=== PATIENT | male | born 1960 | race Caucasian/White ===

== ENCOUNTER 2024-08-25 09:05 | Outpatient (AMB) | payer MEDICAID, SELFPAY ==
[2024-08-25 09:15] VITALS: BP 144/88; PULSE 59; RESP 18; TEMP 36.6; O2SAT 97; BMI 31.4
--- NOTE | 2024-08-25 09:15 | ORTHONT_ITS ---
Vital signs 08/25/24 09:15 Height 1.75 m Height Method Stated Weight 96.19 kg Weight Measurement Method Standing Scale BMI 31.4 BP 144/88 H Blood Pressure Source Automatic Cuff Blood Pressure Location Right Upper Arm Position Sitting Respiration 18 Pulse 59 L Pulse Source Monitor Temp 97.8 F Temp Source Temporal Artery Scan Pulse Oximetry (%) 97 Oxygen Delivery Method Room Air Med/Allergies Allergies & Medications Allergies No Known Allergies Allergy (Verified 08/25/24 09:16) Medication Reconciliation albuterol sulfate 90 mcg/actuation aerosol inhaler 2 puff inhalation Q6H PRN [History Confirmed 08/25/24] allopurinol 300 mg tablet 300 mg PO QDAY 02/08/24 [History Confirmed 08/25/24] colchicine 0.6 mg capsule 0.6 mg PO QDAY 02/08/24 [History Confirmed 08/25/24] fluticasone 100 mcg-salmeterol 50 mcg/dose blistr powdr for inhalation (Advair Diskus) 1 inh inhalation BID 02/08/24 [History Confirmed 08/25/24] levothyroxine 150 mcg capsule 150 mcg PO QDAY 02/08/24 [History Confirmed 08/25/24] losartan 100 mg tablet 100 mg PO QDAY 02/08/24 [History Confirmed 08/25/24] pravastatin 80 mg tablet 80 mg PO QDAY 02/08/24 [History Confirmed 08/25/24] meloxicam 7.5 mg tablet 7.5 mg PO QDAY #45 tabs 02/22/24 [Rx Confirmed 08/25/24] diclofenac sodium 1 % topical gel (Arthritis Pain (diclofenac)) 4 g topical QID #100 grams 08/25/24 [Rx] meloxicam 15 mg tablet 15 mg PO QDAY #60 tabs 08/25/24 [Rx] Exam Exam Patient is in no acute distress and is cooperative with the examination today. Breathing is nonlabored. Patient has a normal mood and affect. Bilateral extremities were evaluated and demonstrates sensation intact to light touch. Palpable pedal pulses are present. No significant edema is present. Bilateral hips were examined. The patient has no pain with log roll of the hips. Internal rotation to 30 degrees and external rotation to 30 degrees is painless. Negative FADIR. Right knee was examined today. The right knee is in reasonable alignment. Range of motion from 0-120 degrees. Knee is stable to varus and valgus as well as AP translation with <5mm. Patient has a negative McMurrays. There is no pain with patellofemoral compression and no crepitus noted. The knee is nontender to palpation. Left knee was examined today. The left knee is in [varus] alignment. Range of motion from [0-115] degrees. Knee is stable to varus and valgus as well as AP translation with <5mm. Patient has a [negative] McMurrays. There is [no] pain with patellofemoral compression and [no] crepitus noted. The knee is [tender] to palpation [medially]. X-rays and MRI reviewed by me today. X-rays demonstrate mild joint space narrowing of the left knee. There are minimal osteophytes. He also has an MRI that demonstrates a degenerative meniscal tear with a horizontal pattern Assessment and Plan Problem List (1) Degenerative arthritis of knee, bilateral: Status: Acute Plan: 63-year-old male with severe left knee pain. He has tried physical therapy and anti-inflammatories. His injection has worn off and he would like another 1 today. He was not that happy with the last injection. He would like a refill of meloxicam Recommend knee cortisone injection as patient would like to proceed with conservative treatment at this time. The risks and benefits of the procedure were reviewed with the patient and patient gave verbal consent to continue with the procedure. Procedure: performed by Dr. Serivn Using sterile technique the left knee was thoroughly prepped with alcohol, and approximately 1 cc of Kenalog 40 mg/mL and 4 cc of 1% lidocaine was injected without resistance into the medial tibial femoral joint space. The patient tolerated the procedure. Office Procedures GNS Level of Care Nursing/Assessment Patient Status: Established Patient Nursing Assessment/Reassesment: Medication Reconciliation, Update PMH in EMR and Vital Signs Coordination of Care: Complex Care and Chronic Disease 1-5, Education Complex Pt/Fam, Consent,records obtained, informed consent, Results/Orders obtained and Staff clarify orders Established Patient Charge Established Patient Point Assignment: 95 Established Patient Point Charge: EP Level 3 (80-115) Surgical Proc/IM SQ injection Major Surgical Procedure: Yes (KNEE INJECTION ) Medication Given Medication Given Medication Given: Yes Documented Dose Given: 4 Route: Infiitration Medication Given Medication Given Medication Given: Yes Documented Dose Given: 1 Route: Infiitration Office Meds Xylocaine 10 mg/mL (1 %) injection solution Performing Provider: Ankur Servin MD Performing Location: [facility] Administered by: Ankur Servin MD on 08/25/24 11:20 Dose Route Admin Location Dispensed Lot Number Expiration Date [employer] 20 mL Infiltration 20 mL [id number] 03/22/27 12918-605-33 [facility] triamcinolone acetonide 40 mg/mL suspension for injection Performing Provider: Ankur Servin MD Performing Location: [facility] Administered by: Ankur Servin MD on 08/25/24 11:20 Dose Route Admin Location Dispensed Lot Number Expiration Date [facility] Plant Electrical Engineer 40 mg intra-articular KNEE PAIN 1 mL [id number] 12/14/25 6973-4884-05 TEVA PARENTERAL [place] Intake Visit Data Collection New Patient or Established: Established Patient (seen at [facility] within 3 years) Reason for Visit:: F/U 3 MONTH KNEE PAIN Seen by Clinical Staff ONLY (RN/MA): No Verbal consent obtained for Telemed visit?: No Corrections Specialist Required: No PCP or OBGYN visit in last 3 months: Yes Hx Now: No Do You Feel Safe at Home: Yes Authorities Contacted: N/A Questionairres Past Medical History Past Medical History Have you ever been diagnosed with any of the following: Respiratory Problems Cough: No Wheezing: No Smoking: No Smoking Cessation Counseling: No Smoking Exposure: No Subjective Visit Visit for: follow up visit and knee Immunization / Flu Flu Vaccine in the Last 12 Months: No Flu Vaccine Exclusion Criteria: No Exclusion Criteria History of Present Illness Chief complaint: F/U 3 MONTH KNEE PAIN Pain Pain level (0-10): 6 Pain duration: CONSTANT Pain location: inside (medial), outside (lateral), anterior and posterior Pain quality: sharp, dull and aching Pain timing: increases with activity Ambulatory data Ambulatory device: none Treatments Improvement with previous injections: No Improvement with PT: No Improvement with NSAIDS: no Review of Systems Review of Systems: All systems negative unless otherwise noted in HPI.
== END 2024-08-25 09:38 | disposition home or self-care (01) ==
LOC: HODSRG 09:05
PROVIDERS: PCP Family Medicine; Referring Provider Family Medicine; Supervising Provider Orthopaedic Surgery Adult Reconstructive Orthopaedic Surgery; Visit Provider Orthopaedic Surgery Adult Reconstructive Orthopaedic Surgery
DX: M17.0 Bilateral primary osteoarthritis of knee (principal); M25.562 Pain in left knee
CPT/HCPCS: 20610; 99213; J3301; J3490; G0463

== ENCOUNTER 2024-11-21 09:02 | Outpatient (AMB) | payer MEDICAID, SELFPAY ==
[2024-11-21 09:15] VITALS: BP 153/91; PULSE 57; RESP 18; TEMP 36.9; O2SAT 99; BMI 31.7
--- NOTE | 2024-11-21 09:15 | PD.ORTHCLVIS ---
Vital signs 11/21/24 09:15 Height 1.75 m Height Method Stated Weight 97.296 kg Weight Measurement Method Standing Scale BMI 31.7 BP 153/91 H Blood Pressure Source Automatic Cuff Blood Pressure Location Right Upper Arm Position Sitting Respiration 18 Pulse 57 L Pulse Source Monitor Temp 98.5 F Temp Source Temporal Artery Scan Pulse Oximetry (%) 99 Oxygen Delivery Method Room Air Med/Allergies Allergies & Medications Allergies No Known Allergies Allergy (Verified 11/21/24 09:16) Medication Reconciliation albuterol sulfate 90 mcg/actuation aerosol inhaler 2 puff inhalation Q6H PRN 02/08/24 [History Confirmed 11/21/24] allopurinol 300 mg tablet 300 mg PO QDAY 02/08/24 [History Confirmed 11/21/24] colchicine 0.6 mg capsule 0.6 mg PO QDAY 02/08/24 [History Confirmed 11/21/24] fluticasone 100 mcg-salmeterol 50 mcg/dose blistr powdr for inhalation (Advair Diskus) 1 inh inhalation BID 02/08/24 [History Confirmed 11/21/24] levothyroxine 150 mcg capsule 150 mcg PO QDAY 02/08/24 [History Confirmed 11/21/24] losartan 100 mg tablet 100 mg PO QDAY 02/08/24 [History Confirmed 11/21/24] pravastatin 80 mg tablet 80 mg PO QDAY 02/08/24 [History Confirmed 11/21/24] meloxicam 7.5 mg tablet 7.5 mg PO QDAY #45 tabs 02/22/24 [Rx Confirmed 11/21/24] diclofenac sodium 1 % topical gel (Arthritis Pain (diclofenac)) 4 g topical QID #100 grams 08/25/24 [Rx Confirmed 11/21/24] meloxicam 15 mg tablet 15 mg PO QDAY #60 tabs 08/25/24 [Rx Confirmed 11/21/24] Exam Exam Patient is in no acute distress and is cooperative with the examination today. Breathing is nonlabored. Patient has a normal mood and affect. Bilateral extremities were evaluated and demonstrates sensation intact to light touch. Palpable pedal pulses are present. No significant edema is present. Bilateral hips were examined. The patient has no pain with log roll of the hips. Internal rotation to 30 degrees and external rotation to 30 degrees is painless. Negative FADIR. Right knee was examined today. The right knee is in reasonable alignment. Range of motion from 0-120 degrees. Knee is stable to varus and valgus as well as AP translation with <5mm. Patient has a negative McMurrays. There is no pain with patellofemoral compression and no crepitus noted. The knee is nontender to palpation. Left knee was examined today. The left knee is in [varus] alignment. Range of motion from [0-115] degrees. Knee is stable to varus and valgus as well as AP translation with <5mm. Patient has a [negative] McMurrays. There is [no] pain with patellofemoral compression and [no] crepitus noted. The knee is [tender] to palpation [medially]. X-rays and MRI reviewed by me today. X-rays demonstrate mild joint space narrowing of the left knee. There are minimal osteophytes. He also has an MRI that demonstrates a degenerative meniscal tear with a horizontal pattern Assessment and Plan Problem List (1) Degenerative arthritis of knee, bilateral: Status: Acute Plan: 63-year-old male with severe left knee pain. He has tried physical therapy and anti-inflammatories. His injection has worn off and he would like another 1 today. He was not that happy with the last injection. He would like a refill of meloxicam Recommend knee cortisone injection as patient would like to proceed with conservative treatment at this time. The risks and benefits of the procedure were reviewed with the patient and patient gave verbal consent to continue with the procedure. Procedure: performed by Dr. Servin Using sterile technique the left knee was thoroughly prepped with alcohol, and approximately 1 cc of Kenalog 40 mg/mL and 4 cc of 1% lidocaine was injected without resistance into the medial tibial femoral joint space. The patient tolerated the procedure. Office Procedures GNS Level of Care Nursing/Assessment Patient Status: Established Patient Nursing Assessment/Reassesment: Medication Reconciliation, Update PMH in EMR and Vital Signs Coordination of Care: Complex Care and Chronic Disease 1-5, Education Complex Pt/Fam, Consent,records obtained, informed consent, Results/Orders obtained and Staff clarify orders Established Patient Charge Established Patient Point Assignment: 95 Established Patient Point Charge: EP Level 3 (80-115) Surgical Proc/IM SQ injection Major Surgical Procedure: Yes (KNEE INJECTION ) Medication Given Medication Given Medication Given: Yes Documented Dose Given: 4 Route: Infiitration Medication Given Medication Given Medication Given: Yes Documented Dose Given: 4 Route: Infiitration Medication Given Medication Given Medication Given: Yes Documented Dose Given: 1 Route: Infiitration Office Meds Xylocaine 10 mg/mL (1 %) injection solution Performing Provider: Ankur Servin MD Performing Location: [facility] Administered by: Ankur Servin MD on 11/21/24 10:13 Dose Route Admin Location Dispensed Lot Number Expiration Date [facility] Retail Leasing Agent 20 mL Infiltration 20 mL [id number] [facility] [employer] Xylocaine 10 mg/mL (1 %) injection solution Performing Provider: Ankur Servin MD Performing Location: [facility] Administered by: Ankur Servin MD on 11/21/24 10:13 Dose Route Admin Location Dispensed Lot Number Expiration Date [place] Retail Leasing Agent 20 mL Infiltration 20 mL triamcinolone acetonide 40 mg/mL suspension for injection Performing Provider: Ankur Servin MD Performing Location: [facility] Administered by: Ankur Servin MD on 11/21/24 10:13 Dose Route Admin Location Dispensed Lot Number Expiration Date [facility] Retail Leasing Agent 40 mg intra-articular KNEE 1 mL [id number] 03/16/26 5471-3756-61 TEVA PARENTERAL MA Intake Visit Data Collection New Patient or Established: Established Patient (seen at [facility] within 3 years) Reason for Visit:: 3 MONTH FOLLOW UP Seen by Clinical Staff ONLY (RN/MA): No Verbal consent obtained for Telemed visit?: No Endoscopy Technican Required: No PCP or OBGYN visit in last 3 months: Yes Hx Now: No Do You Feel Safe at Home: Yes Authorities Contacted: N/A Questionairres Past Medical History Past Medical History Have you ever been diagnosed with any of the following: Respiratory Problems Cough: No Wheezing: No Smoking: No Smoking Cessation Counseling: No Smoking Exposure: No Subjective Visit Visit for: follow up visit, knee and injections Immunization / Flu Flu Vaccine in the Last 12 Months: Yes Flu Vaccine Exclusion Criteria: Already Received History of Present Illness Chief complaint: 3 FOLLOW UP KNEE INJECTION Wisam is a 64-year-old male who we have been treating with a degenerative discal tear. He reports the last 3 months of actually pretty great. He would like new injections today but reports that they are still working very well. Pain Pain level (0-10): 5 Pain duration: ALL DAY Pain location: inside (medial), outside (lateral), anterior and posterior Pain quality: sharp, dull and aching Pain timing: increases with activity Associated signs & symptoms: weakness Ambulatory data Ambulatory device: none Treatments Improvement with previous injections: No Improvement with PT: No Improvement with NSAIDS: no Review of Systems Review of Systems: All systems negative unless otherwise noted in HPI.
== END 2024-11-21 09:32 | disposition home or self-care (01) ==
PROVIDERS: PCP Family Medicine; Referring Provider Family Medicine; Supervising Provider Orthopaedic Surgery Adult Reconstructive Orthopaedic Surgery; Visit Provider Orthopaedic Surgery Adult Reconstructive Orthopaedic Surgery
DX: M17.0 Bilateral primary osteoarthritis of knee (principal); M25.562 Pain in left knee
CPT/HCPCS: 20610; 99213; J3301; J3490; G0463

== ENCOUNTER 2025-02-20 10:29 | Outpatient (AMB) | payer MEDICAID, SELFPAY ==
--- NOTE | 2025-02-20 10:48 | PD.ORTHCLVIS ---
Vital signs 02/20/25 10:49 Height 1.75 m Height Method Stated Weight 91.314 kg Weight Measurement Method Standing Scale BMI 29.8 BP 164/86 H Blood Pressure Source Automatic Cuff Blood Pressure Location Right Upper Arm Position Sitting Respiration 18 Pulse 60 Pulse Source Monitor Temp 97.6 F Temp Source Temporal Artery Scan Pulse Oximetry (%) 98 Oxygen Delivery Method Room Air Med/Allergies Allergies & Medications Allergies No Known Allergies Allergy (Verified 02/20/25 10:50) Medication Reconciliation albuterol sulfate 90 mcg/actuation aerosol inhaler 2 puff inhalation Q6H PRN 02/08/24 [History Confirmed 02/20/25] allopurinol 300 mg tablet 300 mg PO QDAY 02/08/24 [History Confirmed 02/20/25] colchicine 0.6 mg capsule 0.6 mg PO QDAY 02/08/24 [History Confirmed 02/20/25] fluticasone 100 mcg-salmeterol 50 mcg/dose blistr powdr for inhalation (Advair Diskus) 1 inh inhalation BID 02/08/24 [History Confirmed 02/20/25] levothyroxine 150 mcg capsule 150 mcg PO QDAY 02/08/24 [History Confirmed 02/20/25] losartan 100 mg tablet 100 mg PO QDAY 02/08/24 [History Confirmed 02/20/25] pravastatin 80 mg tablet 80 mg PO QDAY 02/08/24 [History Confirmed 02/20/25] meloxicam 7.5 mg tablet 7.5 mg PO QDAY #45 tabs 02/22/24 [Rx Confirmed 02/20/25] diclofenac sodium 1 % topical gel (Arthritis Pain (diclofenac)) 4 g topical QID #100 grams 08/25/24 [Rx Confirmed 02/20/25] meloxicam 15 mg tablet 15 mg PO QDAY #60 tabs 08/25/24 [Rx Confirmed 02/20/25] Exam Exam Patient is in no acute distress and is cooperative with the examination today. Breathing is nonlabored. Patient has a normal mood and affect. Bilateral extremities were evaluated and demonstrates sensation intact to light touch. Palpable pedal pulses are present. No significant edema is present. Bilateral hips were examined. The patient has no pain with log roll of the hips. Internal rotation to 30 degrees and external rotation to 30 degrees is painless. Negative FADIR. Right knee was examined today. The right knee is in reasonable alignment. Range of motion from 0-120 degrees. Knee is stable to varus and valgus as well as AP translation with <5mm. Patient has a negative McMurrays. There is no pain with patellofemoral compression and no crepitus noted. The knee is nontender to palpation. Left knee was examined today. The left knee is in [varus] alignment. Range of motion from [0-115] degrees. Knee is stable to varus and valgus as well as AP translation with <5mm. Patient has a [negative] McMurrays. There is [no] pain with patellofemoral compression and [no] crepitus noted. The knee is [tender] to palpation [medially]. X-rays and MRI reviewed by me today. X-rays demonstrate mild joint space narrowing of the left knee. There are minimal osteophytes. He also has an MRI that demonstrates a degenerative meniscal tear with a horizontal pattern Assessment and Plan Problem List (1) Degenerative arthritis of knee, bilateral: Status: Acute Plan: 63-year-old male with severe left knee pain. He has tried physical therapy and anti-inflammatories. His injection has worn off and he would like another 1 today. He was not that happy with the last injection. Given that he has failed conservative treatment including physical therapy, multiple injections, anti-inflammatories, and that he has significant mechanical symptoms, we considered arthroscopic meniscectomy as a reasonable option. We discussed the risk of surgery including infection, progression of arthritis, retear, persistent mechanical symptoms, damage to nerves and vessels. He would like to proceed with surgery at this time. He has failed conservative treatment. Office Procedures GNS Level of Care Nursing/Assessment Patient Status: Established Patient Nursing Assessment/Reassesment: Medication Reconciliation, Update PMH in EMR and Vital Signs Coordination of Care: Complex Care and Chronic Disease 1-5, Education Complex Pt/Fam, Consent,records obtained, informed consent, Lab and Imaging orders, Results/Orders obtained and Staff clarify orders Established Patient Charge Established Patient Point Assignment: 110 Established Patient Point Charge: EP Level 3 (80-115) MA Intake Visit Data Collection New Patient or Established: Established Patient (seen at [facility] within 3 years) Reason for Visit:: REQ LEFT KNEE SURGERY DUE TO PAIN Seen by Clinical Staff ONLY (RN/MA): No Verbal consent obtained for Telemed visit?: No Aviation Neuropsychologist Required: No PCP or OBGYN visit in last 3 months: Yes Hx Now: No Do You Feel Safe at Home: Yes Authorities Contacted: N/A Questionairres Past Medical History Past Medical History Have you ever been diagnosed with any of the following: Respiratory Problems Cough: No Wheezing: No Smoking: No Smoking Cessation Counseling: No Smoking Exposure: No Subjective Visit Visit for: follow up visit, knee and injections Immunization / Flu Flu Vaccine in the Last 12 Months: No Flu Vaccine Exclusion Criteria: No Exclusion Criteria and Already Received History of Present Illness Chief complaint: 3 FOLLOW UP KNEE INJECTION Wisam is a 64-year-old male who we have been treating with a degenerative meniscal tear. The pain has been ongoing for a year. He is very active and enjoys photography and wants to go back to hiking. He reports he does not trust his left knee as it clicks and walks. The pain is primarily on the medial aspect of his knee. He has tried formal physical therapy and multiple injections and anti-inflammatories at this point with minimal relief. We just considered a arthroscopic meniscectomy as a real option as he has a lot of mechanical symptoms Personal History Red flag PMH: BMI BMI Counceling provided: Yes Pain Pain level (0-10): 6 Pain duration: WITH MOVEMENT Pain location: inside (medial), outside (lateral), anterior and posterior Pain quality: sharp, dull and aching Pain timing: increases with activity Associated signs & symptoms: numbness and weakness Ambulatory data Ambulatory device: none Treatments Improvement with previous injections: No Improvement with PT: No Improvement with NSAIDS: no Review of Systems Review of Systems: All systems negative unless otherwise noted in HPI.
[2025-02-20 10:49] VITALS: BP 164/86; PULSE 60; RESP 18; TEMP 36.4; O2SAT 98; BMI 29.8
== END 2025-02-20 10:55 | disposition home or self-care (01) ==
LOC: HODSRG 10:29
PROVIDERS: PCP Family Medicine; Referring Provider Family Medicine; Supervising Provider Orthopaedic Surgery Adult Reconstructive Orthopaedic Surgery; Visit Provider Orthopaedic Surgery Adult Reconstructive Orthopaedic Surgery
DX: M17.0 Bilateral primary osteoarthritis of knee (principal); M25.562 Pain in left knee
CPT/HCPCS: 99213; G0463

== ENCOUNTER 2025-03-19 06:35 | Day surgery (SDC) | payer MEDICAID, SELFPAY ==
--- NOTE | 2025-03-15 06:00 | EKG_ITS ---
[facility] Test Date: 2025-03-15 Pat Name: JONE ABDULLAHI Department: Room: - Gender: Male [employer] Pumper: ALBER : 1960 Requested By: Tee Mansfield Order Number: [id number] Reading MD: Tee Mansfield Measurements Intervals [place] Rate: 53 P: 39 AK: 179 QRS: -58 QRSD: 138 T: -9 QT: 441 QTc: 417 Interpretive Statements SINUS BRADYCARDIA RIGHT BUNDLE BRANCH BLOCK [120+ ms QRS DURATION, UPRIGHT V1, 40+ ms S IN I/aVL/V4/V5/V6] LEFT ANTERIOR FASCICULAR BLOCK [QRS AXIS <= -45, QR IN I, RS IN II] No previous ECG available for comparison /[id number]/[email or web address]/[id number]
[2025-03-15 10:08] VITALS: BMI 30.8
[2025-03-15 11:36] LABS: Basophils # (Auto) 0.0 Thou/mm3 (0.0-0.2); Basophils % (Auto) 1 % (0-2.5); Eosinophils # (Auto) 0.6 Thou/mm3 (0.0-0.5); Eosinophils % (Auto) 12 % (0-10); Hematocrit 42.5 % (41.0-53.0); Hemoglobin 14.2 g/dL (13.5-16.0); Immature Granulocytes Auto 0.01 Thou/mm3 (0.00-0.00); Lymphocytes # (Auto) 1.7 Thou/mm3 (1.0-4.8); Lymphocytes % (Auto) 33 % (10-50); Mean Corpuscular HGB Conc 33.4 g/dl (31.0-37.0); Mean Corpuscular Hemoglobin 32.0 pg (25.0-35.0); Mean Corpuscular Volume 96 fL (80-100); Monocytes # (Auto) 0.8 Thou/mm3 (0.0-0.8); Monocytes % (Auto) 16 % (0-12); Neutrophils # (Auto) 1.9 Thou/mm3 (1.8-7.7); Neutrophils % (Auto) 38 % (37-80); Nucleated Red Blood Cell # 0.00 Thou/mm3 (0.00-0.00); Nucleated Red Blood Cell % 0 /100 WBC (0); Platelet Count 312 Thou/mm3 (140-440); RDW Standard Deviation 45.3 fL (35.1-43.9); Red Blood Count 4.44 Miln/mm3 (4.50-5.90); White Blood Count 4.9 Thou/mm3 (3.8-10.6)
[2025-03-15 11:41] LABS: Alanine Aminotransferase 38 U/L (10-49); Albumin, Serum 4.6 gm/dL (3.4-4.8); Albumin/Globulin Ratio 1.8 (1.2-2.2); Alkaline Phosphatase 65 U/L (46-116); Anion Gap 7 (7-16); Aspartate Amino Transferase 25 U/L (0-34); BUN/Creatinine Ratio 11 Ratio (12-20); Bilirubin,Total 0.5 mg/dL (0.3-1.2); Blood Urea Nitrogen 13 mg/dL (9-23); Calcium 9.6 mg/dL (8.3-10.6); Calcium (Corrected) 9.6 mg/dL (8.5-10.1); Carbon Dioxide 28.4 mMol/L (20.0-31.0); Chloride 105 mMol/L (98-107); Creatinine (Component) 1.2 mg/dL (0.6-1.3); Estimated Creatinine Clearance 68.5 mL/min (>60); Globulin 2.5 gm/dL (2.3-3.5); Glucose 102 mg/dL (74-106); Osmolality,Calculated 279 (275-295); Potassium 4.1 mMol/L (3.4-5.1); Sodium 140 mMol/L (136-145); Total Protein 7.1 gm/dL (5.7-8.2); eGFR > 60 See Note
[2025-03-15 11:45] LABS: INR 1.0 (0.9-1.3); Partial Thromboplastin Time 28.2 Seconds (22.0-36.0); Prothrombin Time 10.5 Seconds (9.0-12.2)
--- NOTE | 2025-03-16 13:37 | SUR.PREOP ---
Pt notified to come in at 0700 for surgery.
[2025-03-19] VITALS (9 sets, daily range): BP systolic 110–152; BP diastolic 67–93; PULSE 52–71; RESP 14–20; TEMP 36.2–36.6; O2SAT 96–100; BMI 30.7
--- NOTE | 2025-03-19 07:23 | SUR.PREOP ---
Patient expressed gratitude for visit before his procedure.
--- NOTE | 2025-03-19 10:27 | SUR.PHASEI ---
1027 Patient arrived to recovery resting comfortably in on oxygen 6L via oxy mask with an oral airway in place, breathing unlabored, vital signs stable, dressing intact to left knee; prineo, telfa, abd, webril, bret wraps, no bleeding noted, report received from Dr. Fonseca and Victoria JEFFERY
--- NOTE | 2025-03-19 10:27 | PD.SUROPNT ---
Date of Procedure 03/19/25 Pre Op Diagnosis left knee meniscus tear medial and lateral Post Op Diagnosis left knee meniscus tear medial and lateral Procedure Left knee arthroscopic meniscectomy Findings Anterior lateral meniscus tear as well as a horizontal tear of the body of the medial meniscus Procedure Description Indications: Patient is a 64-year-old male with left knee pain and symptoms of mechanical locking and clicking. He also has significant left knee pain. He has failed conservative treatment and we thus discussed arthroscopic meniscectomy is a reasonable option. MRI confirmed a meniscus tear as well as clinical exam. He understands the risk of surgery including arthritis, progression of arthritis, possible knee replacement in the future, damage to nerves and vessels Procedure detail: The patient was prepped and draped in usual sterile fashion. The tourniquet was inflated after surgical timeout verified that the left side was the correct side. We first used a L4 portal followed by a inferolateral arthroscopic portal. A diagnostic knee scope was performed. He was found to have grade 3 changes on the medial femoral condyle despite x-rays being relatively normal. He was found to have significant fraying of the lateral medial meniscus. On the medial meniscus of the body there was a displaced horizontal flap component. This was debrided using a biter followed by a shaver. We then into went to a [id number] position and there was noted to be fraying of the anterior lateral meniscus. We used a shaver to debride this to a clean margin. Pictures were taken. We subsequently injected local anesthetic into the knee. The patient was closed with 3-0 Monocryl and a sterile dressing was applied. Postoperative plan Weightbearing as tolerated Pathology / specimen None Pathology comment: none Estimated Blood Loss 20 Disposition same day Surgeon Ankur Servin MD Surgical Staff Operation Date: 03/19/25 10:00 Case Staff Anesthesiologist: Wilton Fonseca RN First Assistant: Cahterine Hoffmann
[2025-03-19] MEDS: HYDROmorphone INJ 2 MG/ML VIAL 0.4 MG IVP (11:07)
--- NOTE | 2025-03-19 11:10 | SUR.PHASEII ---
1110 patient son notified patient out of surgery and ready to have family, son shared he would leave his house that he lives in [place]
--- NOTE | 2025-03-19 11:55 | SUR.PHASEII ---
1155 Patient disconnected from vital signs monitor and dressed in his clothing awaiting his ride
--- NOTE | 2025-03-19 12:20 | SUR.PHASEII ---
1220 Patient meets discharge criteria from recovery, awake and alert, breathing unlabored, vital signs stable, denies pain, dressing intact; no bleeding noted, ate two jello and drinking 7up; denies nausea, discharge instructions given to patient and patients son, son signed discharge instructions. Patient given all his belongings prior to discharge, transported via wheelchair and left in a private vehicle.
== END 2025-03-19 12:20 | disposition home or self-care (01) ==
PROVIDERS: Anesthesiology; PCP Family Medicine; Referring Provider Orthopaedic Surgery Adult Reconstructive Orthopaedic Surgery; Visit Provider Orthopaedic Surgery Adult Reconstructive Orthopaedic Surgery
PROC: (CPT 29870; principal; 2025-03-19 09:45)
DX: S83.282A Other tear of lateral meniscus, current injury, left knee, initial encounter (principal); X58.XXXA Exposure to other specified factors, initial encounter; Z01.810 Encounter for preprocedural cardiovascular examination; I44.4 Left anterior fascicular block; I45.10 Unspecified right bundle-branch block; R00.1 Bradycardia, unspecified; M17.12 Unilateral primary osteoarthritis, left knee
CPT/HCPCS: 29881; 36415; 80053; 85025; 85610; 85730; 93005; A4217; A4649; J0131; J0690; J1171; J2250; J2704; J3010; J3490; J7999; J0665

== ENCOUNTER 2025-04-03 13:00 | Outpatient (AMB) | payer MEDICAID, SELFPAY ==
--- NOTE | 2025-04-03 13:13 | ORTHONT_ITS ---
Vital signs 04/03/25 13:23 Height 1.73 m Height Method Stated Weight 92.76 kg Weight Measurement Method Standing Scale BMI 30.9 BP 144/78 H Blood Pressure Source Automatic Cuff Blood Pressure Location Left Upper Arm Position Sitting Respiration 19 Pulse 59 L Pulse Source Monitor Temp 97.6 F Temp Source Temporal Artery Scan Pulse Oximetry (%) 98 Oxygen Delivery Method Room Air Med/Allergies Allergies & Medications Allergies [id number] Reductase Inhibitor Allergy (Verified 04/03/25 13:24) Cramping of the Muscles Medication Reconciliation albuterol sulfate 90 mcg/actuation aerosol inhaler 2 puff inhalation Q6H PRN shortness of breath or wheezing 02/08/24 [History Confirmed 04/03/25] allopurinol 300 mg tablet 300 mg PO QDAY 02/08/24 [History Confirmed 04/03/25] colchicine 0.6 mg capsule 0.6 mg PO QDAY 02/08/24 [History Confirmed 04/03/25] fluticasone 100 mcg-salmeterol 50 mcg/dose blistr powdr for inhalation (Advair Diskus) 1 inh inhalation BID 02/08/24 [History Confirmed 04/03/25] levothyroxine 150 mcg capsule 150 mcg PO QDAY 02/08/24 [History Confirmed 04/03/25] losartan 100 mg tablet 100 mg PO QDAY 02/08/24 [History Confirmed 04/03/25] amlodipine 5 mg tablet 5 mg PO DAILY 03/15/25 [History Confirmed 04/03/25] acetaminophen 500 mg tablet (Acetaminophen Extra Strength) 1,000 mg (2 x 500 mg) PO Q6H PRN pain #90 tabs 03/19/25 [Rx Confirmed 04/03/25] oxycodone 5 mg tablet 5 mg PO Q6H PRN pain #14 tabs 03/19/25 [Rx Confirmed 04/03/25] sennosides 8.6 mg-docusate sodium 50 mg tablet (Senna-S) 1 tab-cap PO QDAY #30 tabs 03/19/25 [Rx Confirmed 04/03/25] Exam Exam Patient is in no acute distress and is cooperative with the examination today. Breathing is nonlabored. Patient has a normal mood and affect. Bilateral extremities were evaluated and demonstrates sensation intact to light touch. Palpable pedal pulses are present. No significant edema is present. Bilateral hips were examined. The patient has no pain with log roll of the hips. Internal rotation to 30 degrees and external rotation to 30 degrees is painless. Negative FADIR. Right knee was examined today. The right knee is in reasonable alignment. Range of motion from 0-120 degrees. Knee is stable to varus and valgus as well as AP translation with <5mm. Patient has a negative McMurrays. There is no pain with patellofemoral compression and no crepitus noted. The knee is nontender to palpation. Left knee incisions clean dry intact. Assessment and Plan Problem List (1) Degenerative arthritis of knee, bilateral: Status: Acute Plan: 63-year-old male with severe left knee pain status post arthroscopic meniscectomy who is doing well. We will see the patient back in approximately 4 weeks. Will start physical therapy Office Procedures GNS Level of Care Nursing/Assessment Patient Status: Established Patient Nursing Assessment/Reassesment: Medication Reconciliation, Update PMH in EMR and Vital Signs Coordination of Care: Complex Care and Chronic Disease 1-5, Education Complex Pt/Fam, Consent,records obtained, informed consent, Results/Orders obtained and Staff clarify orders Established Patient Charge Established Patient Point Assignment: 95 Established Patient Point Charge: EP Level 3 (80-115) MA Intake Visit Data Collection New Patient or Established: Established Patient (seen at [facility] within 3 years) Reason for Visit:: 2 WEEK L KNEE Seen by Clinical Staff ONLY (RN/MA): No Verbal consent obtained for Telemed visit?: No 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 PCP or OBGYN visit in last 3 months: Yes Hx Now: No Do You Feel Safe at Home: Yes Authorities Contacted: N/A Questionairres Past Medical History Past Medical History Have you ever been diagnosed with any of the following: Neurological Problems Seizures: No Cardiology Problems Hypercholesterolemia: Yes Congestive Heart Failure: No Hypertension: Yes Respiratory Problems Chronic Obstructive Pulmonary Disease (COPD): No Asthma: Yes Bronchitis: Yes Cough: No Wheezing: No Smoking: No Smoking Cessation Counseling: No Smoking Exposure: No Genital/Urinary Problems Renal Disease: No Musculoskeletal Problems Gout: Yes Carpal Tunnel Syndrome: Yes (jhonathan) Endocrine Problems Diabetes Mellitus Type 1: No Diabetes Mellitus Type 2: No Hypothyroidism: Yes Other Problems Hospitalization: No Shingles: No Blood Transfusions: No Blood Transfusion Reaction: No Anesthesia Reactions: No Chicken Pox: Yes Mumps: Yes Cancer: No Subjective Visit Visit for: follow up visit and knee Immunization / Flu Flu Vaccine in the Last 12 Months: No Flu Vaccine Exclusion Criteria: No Exclusion Criteria and Already Received History of Present Illness Chief complaint: 3 FOLLOW UP KNEE INJECTION Wisam is a 64-year-old male who we have been treating with a degenerative meniscal tear. He is doing well status post meniscectomy. Personal History Red flag PMH: BMI BMI Counceling provided: Yes Pain Pain level (0-10): 0 Pain duration: WITH MOVEMENT Pain location: inside (medial), outside (lateral), anterior and posterior Pain quality: sharp, dull and aching Pain timing: increases with activity Associated signs & symptoms: numbness and weakness Ambulatory data Ambulatory device: cane Treatments Improvement with previous injections: No Improvement with PT: No Improvement with NSAIDS: no Review of Systems Review of Systems: All systems negative unless otherwise noted in HPI.
[2025-04-03 13:23] VITALS: BP 144/78; PULSE 59; RESP 19; TEMP 36.4; O2SAT 98; BMI 30.9
== END 2025-04-03 13:54 | disposition home or self-care (01) ==
PROVIDERS: PCP Family Medicine; Referring Provider Family Medicine; Supervising Provider Orthopaedic Surgery Adult Reconstructive Orthopaedic Surgery; Visit Provider Orthopaedic Surgery Adult Reconstructive Orthopaedic Surgery
DX: M17.0 Bilateral primary osteoarthritis of knee (principal); Z98.890 Other specified postprocedural states; M25.562 Pain in left knee; I10 Essential (primary) hypertension; E78.00 Pure hypercholesterolemia, unspecified; E03.9 Hypothyroidism, unspecified
CPT/HCPCS: 99213; G0463

== ENCOUNTER 2025-04-24 11:20 | Outpatient (AMB) | payer MEDICAID, SELFPAY ==
[2025-04-24 11:25] VITALS: BP 135/77; PULSE 66; RESP 18; TEMP 36.6; O2SAT 93; BMI 31.6
--- NOTE | 2025-04-24 11:25 | ORTHONT_ITS ---
Vital signs 04/24/25 11:25 Height 1.73 m Height Method Measured Weight 94.546 kg Weight Measurement Method Standing Scale BMI 31.6 BP 135/77 H Blood Pressure Source Automatic Cuff Blood Pressure Location Left Upper Arm Position Sitting Respiration 18 Pulse 66 Pulse Source Monitor Temp 97.9 F Temp Source Temporal Artery Scan Pulse Oximetry (%) 93 L Oxygen Delivery Method Room Air Med/Allergies Allergies & Medications Allergies [id number] Reductase Inhibitor Allergy (Verified 04/24/25 11:26) Cramping of the Muscles Medication Reconciliation albuterol sulfate 90 mcg/actuation aerosol inhaler 2 puff inhalation Q6H PRN shortness of breath or wheezing 02/08/24 [History Confirmed 04/24/25] allopurinol 300 mg tablet 300 mg PO QDAY 02/08/24 [History Confirmed 04/24/25] colchicine 0.6 mg capsule 0.6 mg PO QDAY 02/08/24 [History Confirmed 04/24/25] fluticasone 100 mcg-salmeterol 50 mcg/dose blistr powdr for inhalation (Advair Diskus) 1 inh inhalation BID 02/08/24 [History Confirmed 04/24/25] levothyroxine 150 mcg capsule 150 mcg PO QDAY 02/08/24 [History Confirmed 04/24/25] losartan 100 mg tablet 100 mg PO QDAY 02/08/24 [History Confirmed 04/24/25] amlodipine 5 mg tablet 5 mg PO DAILY 03/15/25 [History Confirmed 04/24/25] acetaminophen 500 mg tablet (Acetaminophen Extra Strength) 1,000 mg (2 x 500 mg) PO Q6H PRN pain #90 tabs 03/19/25 [Rx Confirmed 04/24/25] oxycodone 5 mg tablet 5 mg PO Q6H PRN pain #14 tabs 03/19/25 [Rx Confirmed 04/24/25] sennosides 8.6 mg-docusate sodium 50 mg tablet (Senna-S) 1 tab-cap PO QDAY #30 tabs 03/19/25 [Rx Confirmed 04/24/25] celecoxib 200 mg capsule 200 mg PO BID #90 caps 04/24/25 [Rx] Exam Exam ROMPatient is in no acute distress and is cooperative with the examination today. Breathing is nonlabored. Patient has a normal mood and affect. Bilateral extremities were evaluated and demonstrates sensation intact to light touch. Palpable pedal pulses are present. No significant edema is present. Bilateral hips were examined. The patient has no pain with log roll of the hips. Internal rotation to 30 degrees and external rotation to 30 degrees is painless. Negative FADIR. Right knee was examined today. The right knee is in reasonable alignment. Range of motion from 0-120 degrees. Knee is stable to varus and valgus as well as AP translation with <5mm. Patient has a negative McMurrays. There is no pain with patellofemoral compression and no crepitus noted. The knee is nontender to palpation. Left knee incisions clean dry intact. ROM is 0-105 Assessment and Plan Problem List (1) Degenerative arthritis of knee, bilateral: Status: Acute Plan: 63-year-old male with severe left knee pain status post arthroscopic meniscectomy who is doing well. We will see the patient back in approximately 2 months. He is to start physical therapy but he is doing well. Which is normal mechanical sensations like he used to. We started him on Celebrex as well Office Procedures GNS Level of Care Nursing/Assessment Patient Status: Established Patient Nursing Assessment/Reassesment: Medication Reconciliation, Orthostatic Vitals, Update PMH in EMR and Vital Signs Coordination of Care: Complex Care and Chronic Disease 1-5, Education Complex Pt/Fam, Consent,records obtained, informed consent, Lab and Imaging orders, Results/Orders obtained and Staff clarify orders Established Patient Charge Established Patient Point Assignment: 120 Established Patient Point Charge: Level 4 (120-155) MA Intake Visit Data Collection New Patient or Established: Established Patient (seen at [facility] within 3 years) Reason for Visit:: 4 WEEK F/U Seen by Clinical Staff ONLY (RN/MA): No Verbal consent obtained for Telemed visit?: 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 PCP or OBGYN visit in last 3 months: Yes Hx Now: No Do You Feel Safe at Home: Yes Authorities Contacted: N/A Questionairres Past Medical History Past Medical History Have you ever been diagnosed with any of the following: Neurological Problems Seizures: No Cardiology Problems Hypercholesterolemia: Yes Congestive Heart Failure: No Hypertension: Yes Respiratory Problems Chronic Obstructive Pulmonary Disease (COPD): No Asthma: Yes Bronchitis: Yes Cough: No Wheezing: No Smoking: No Smoking Cessation Counseling: No Smoking Exposure: No Genital/Urinary Problems Renal Disease: No Musculoskeletal Problems Gout: Yes Carpal Tunnel Syndrome: Yes (jhonathan) Endocrine Problems Diabetes Mellitus Type 1: No Diabetes Mellitus Type 2: No Hypothyroidism: Yes Other Problems Hospitalization: No Shingles: No Blood Transfusions: No Blood Transfusion Reaction: No Anesthesia Reactions: No Chicken Pox: Yes Mumps: Yes Cancer: No Subjective Visit Visit for: follow up visit and knee Immunization / Flu Flu Vaccine in the Last 12 Months: No Flu Vaccine Exclusion Criteria: No Exclusion Criteria and Already Received History of Present Illness Chief complaint: 4 WEEK F/U Wisam is a 64-year-old male who we have been treating with a degenerative meniscal tear. He is doing well status post meniscectomy. He hasnt started therapy and well Personal History Red flag PMH: BMI BMI Counceling provided: Yes Pain Pain level (0-10): 4 Pain duration: WITH MOVEMENT Pain location: inside (medial), outside (lateral), anterior and posterior Pain quality: sharp, dull and aching Pain timing: increases with activity Associated signs & symptoms: numbness and weakness Ambulatory data Ambulatory device: none Treatments Improvement with previous injections: No Improvement with PT: No Improvement with NSAIDS: no Review of Systems Review of Systems: All systems negative unless otherwise noted in HPI.
== END 2025-04-24 11:30 | disposition home or self-care (01) ==
LOC: HODSRG 11:20
PROVIDERS: PCP Family Medicine; Referring Provider Family Medicine; Supervising Provider Orthopaedic Surgery Adult Reconstructive Orthopaedic Surgery; Visit Provider Orthopaedic Surgery Adult Reconstructive Orthopaedic Surgery
DX: M17.0 Bilateral primary osteoarthritis of knee (principal); M25.562 Pain in left knee; S83.209D Unspecified tear of unspecified meniscus, current injury, unspecified knee, subsequent encounter; X58.XXXD Exposure to other specified factors, subsequent encounter; I10 Essential (primary) hypertension; E03.9 Hypothyroidism, unspecified; E78.00 Pure hypercholesterolemia, unspecified
CPT/HCPCS: 99214; G0463

== ENCOUNTER 2025-06-27 13:53 | Outpatient (AMB) | payer MEDICAID, SELFPAY ==
--- NOTE | 2025-06-27 14:06 | PD.ORTHCLVIS ---
Vital signs 06/27/25 14:07 Height 1.73 m Height Method Measured Weight 95.708 kg Weight Measurement Method Standing Scale BMI 31.9 BP 146/89 H Blood Pressure Source Automatic Cuff Blood Pressure Location Left Upper Arm Position Sitting Respiration 20 Pulse 63 Pulse Source Monitor Temp 98.3 F Temp Source Temporal Artery Scan Pulse Oximetry (%) 94 L Oxygen Delivery Method Room Air Med/Allergies Allergies & Medications Allergies [id number]-[id number] Reductase Inhibitor Allergy (Verified 06/27/25 14:10) Cramping of the Muscles Medication Reconciliation albuterol sulfate 90 mcg/actuation aerosol inhaler 2 puff inhalation Q6H PRN shortness of breath or wheezing 02/08/24 [History Confirmed 06/27/25] allopurinol 300 mg tablet 300 mg PO QDAY 02/08/24 [History Confirmed 06/27/25] colchicine 0.6 mg capsule 0.6 mg PO QDAY 02/08/24 [History Confirmed 06/27/25] fluticasone 100 mcg-salmeterol 50 mcg/dose blistr powdr for inhalation (Advair Diskus) 1 inh inhalation BID 02/08/24 [History Confirmed 06/27/25] levothyroxine 150 mcg capsule 150 mcg PO QDAY 02/08/24 [History Confirmed 06/27/25] losartan 100 mg tablet 100 mg PO QDAY 02/08/24 [History Confirmed 06/27/25] amlodipine 5 mg tablet 5 mg PO DAILY 03/15/25 [History Confirmed 06/27/25] acetaminophen 500 mg tablet (Acetaminophen Extra Strength) 1,000 mg (2 x 500 mg) PO Q6H PRN pain #90 tabs 03/19/25 [Rx Confirmed 06/27/25] oxycodone 5 mg tablet 5 mg PO Q6H PRN pain #14 tabs 03/19/25 [Rx Confirmed 06/27/25] sennosides 8.6 mg-docusate sodium 50 mg tablet (Senna-S) 1 tab-cap PO QDAY #30 tabs 03/19/25 [Rx Confirmed 06/27/25] celecoxib 200 mg capsule 200 mg PO BID #90 caps 04/24/25 [Rx Confirmed 06/27/25] meloxicam 7.5 mg tablet 7.5 mg PO QDAY #45 tabs 06/27/25 [Rx] Exam Exam ROMPatient is in no acute distress and is cooperative with the examination today. Breathing is nonlabored. Patient has a normal mood and affect. Bilateral extremities were evaluated and demonstrates sensation intact to light touch. Palpable pedal pulses are present. No significant edema is present. Bilateral hips were examined. The patient has no pain with log roll of the hips. Internal rotation to 30 degrees and external rotation to 30 degrees is painless. Negative FADIR. Right knee was examined today. The right knee is in reasonable alignment. Range of motion from 0-120 degrees. Knee is stable to varus and valgus as well as AP translation with <5mm. Patient has a negative McMurrays. There is no pain with patellofemoral compression and no crepitus noted. The knee is nontender to palpation. Left knee incisions clean dry intact. ROM is 0-105 Assessment and Plan Problem List (1) Degenerative arthritis of knee, bilateral: Status: Acute Plan: 63-year-old male with severe left knee pain status post arthroscopic meniscectomy who is doing well. He had an increase in knee pain and wants to try an injection. He should continue with meloxicam. Recommend knee cortisone injection as patient would like to proceed with conservative treatment at this time. The risks and benefits of the procedure were reviewed with the patient and patient gave verbal consent to continue with the procedure. Procedure: performed by Dr. Servin Using sterile technique the left knee was thoroughly prepped with alcohol, and approximately 1 cc of Depo-Medrol 80mg/mL and 4 cc of 0.2% ropivacaine was injected without resistance into the medial tibial femoral joint space. The patient tolerated the procedure. Office Procedures GNS Level of Care Nursing/Assessment Patient Status: Established Patient Nursing Assessment/Reassesment: Medication Reconciliation, Update PMH in EMR and Vital Signs Coordination of Care: Complex Care and Chronic Disease 1-5, Education Complex Pt/Fam, Consent,records obtained, informed consent, Results/Orders obtained and Staff clarify orders Established Patient Charge Established Patient Point Assignment: 95 Established Patient Point Charge: EP Level 3 (80-115) Surgical Proc/IM SQ injection Minor Surgical Procedure: Yes (KNEE INJECTION) Medication Given Medication Given Medication Given: Yes Documented Dose Given: 1 Route: Infiitration Medication Given Medication Given Medication Given: Yes Documented Dose Given: 4 Route: Infiitration Office Meds methylprednisolone acetate 80 mg/mL suspension for injection Performing Provider: Ankur Servin MD Performing Location: [facility] Administered by: Ankur Servin MD on 06/27/25 15:09 Dose Route Admin Location Dispensed Lot Number Expiration Date Package NDC NDC Head Banquet Waitress 80 mg intra-articular KNEE 1 mL [id number] 03/15/27 [address]-2 [id number] [employer] ropivacaine (PF) 2 mg/mL (0.2 %) injection solution Performing Provider: Ankur Servin MD Performing Location: [facility] Administered by: Ankur Servin MD on 06/27/25 15:09 Dose Route Admin Location Dispensed Lot Number Expiration Date Package NDC NDC Head Banquet Waitress 20 mL Infiltration KNEE 20 mL [id number] 09/15/27 75742-621-75 [id number] [facility] Intake Visit Data Collection New Patient or Established: Established Patient (seen at [facility] within 3 years) Reason for Visit:: 2 MONTH F/U Seen by Clinical Staff ONLY (RN/MA): No Verbal consent obtained for Telemed visit?: No 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 PCP or OBGYN visit in last 3 months: Yes Hx Now: No Do You Feel Safe at Home: Yes Authorities Contacted: N/A Questionairres Past Medical History Past Medical History Have you ever been diagnosed with any of the following: Neurological Problems Seizures: No Cardiology Problems Hypercholesterolemia: Yes Congestive Heart Failure: No Hypertension: Yes Respiratory Problems Chronic Obstructive Pulmonary Disease (COPD): No Asthma: Yes Bronchitis: Yes Cough: No Wheezing: No Smoking: No Smoking Cessation Counseling: No Smoking Exposure: No Genital/Urinary Problems Renal Disease: No Musculoskeletal Problems Gout: Yes Carpal Tunnel Syndrome: Yes (jhonathan) Endocrine Problems Diabetes Mellitus Type 1: No Diabetes Mellitus Type 2: No Hypothyroidism: Yes Other Problems Hospitalization: No Shingles: No Blood Transfusions: No Blood Transfusion Reaction: No Anesthesia Reactions: No Chicken Pox: Yes Mumps: Yes Cancer: No Subjective Visit Visit for: follow up visit and knee Immunization / Flu Flu Vaccine in the Last 12 Months: No Flu Vaccine Exclusion Criteria: No Exclusion Criteria and Already Received History of Present Illness Chief complaint: 2 MONTH F/U Wisam is a 64-year-old male who we have been treating with a degenerative meniscal tear. He is doing well status post meniscectomy. He is done with physical therapy. He reports that he was doing well until approximately a month ago or an increase in pain. The pain is on the lateral aspect of his knee. He would like a cortisone injection Personal History Red flag PMH: BMI BMI Counceling provided: Yes Pain Pain level (0-10): 2 Pain duration: WITH MOVEMENT Pain location: inside (medial), outside (lateral), anterior and posterior Pain quality: sharp, dull and aching Pain timing: increases with activity Associated signs & symptoms: numbness and weakness Ambulatory data Ambulatory device: none Treatments Improvement with previous injections: No Improvement with PT: No Improvement with NSAIDS: no Review of Systems Review of Systems: All systems negative unless otherwise noted in HPI.
[2025-06-27 14:07] VITALS: BP 146/89; PULSE 63; RESP 20; TEMP 36.8; O2SAT 94; BMI 31.9
== END 2025-06-27 14:38 | disposition home or self-care (01) ==
PROVIDERS: PCP Family Medicine; Referring Provider Family Medicine; Supervising Provider Orthopaedic Surgery Adult Reconstructive Orthopaedic Surgery; Visit Provider Orthopaedic Surgery Adult Reconstructive Orthopaedic Surgery
DX: M17.0 Bilateral primary osteoarthritis of knee (principal)
CPT/HCPCS: 20610; 99213; J1010; J2795; G0463